=== PATIENT | male | born 1985 | race Caucasian/White ===

== ENCOUNTER 2016-05-10 01:01 | Inpatient (IN) | payer OTHER ==
--- NOTE | 2016-05-10 01:22 | HP ---
COWS - Scale Resting Pulse: 0= [place] 80 or Below Sweatin=Flushed/Facial Moisture Restless Observation: 3= Extraneous Movement Pupil Size: 2= Moderately Dilated Bone or Joint Aches: 0= None Runny Nose/ Eye Tearin= Runny Nose/Eyes GI Upset > 30mins: 0= None Tremor Observation: 1= Tremor [place], Not Seen Yawning Observation: 1= 1-2x During Session Anxiety or Irritability: 2=Irritable/Anxious Goose Flesh Skin: 0=Smooth Skin COWS Score: 13 Admission ROS S - HPI Chief Complaint: WITHDRAWAL SX'S Allergies/Adverse Reactions: Allergies Allergy/AdvReac Type Severity Reaction Status Date / Time No Known Allergies Allergy Verified 05/10/16 01:16 History of Present Illness: 30 Y.O. MALE WITH OPIOID DEPENDENCE HERE FOR DETOX TXMENT. CLIENT REPORTS LAST DETOX 1 YEAR AGO. REPORTS LONGEST CLEAN TIME 8 YEARS. Exam Limitations: No Limitations - Ebola screening Have you traveled outside of the country in the last 21 days: No Have you had contact with anyone from an Ebola affected area: No Have you been sick,other than usual withdrawal symptoms: No Do you have a fever: No - Review of Systems Constitutional: No Symptoms Reported EENT: reports: Ear Discharge ([place]AT[place]), Nose Congestion Respiratory: reports: Shortness of Breath Cardiac: reports: No Symptoms Reported GI: reports: No Symptoms Reported : reports: No Symptoms Reported Musculoskeletal: reports: No Symptoms Reported Integumentary: reports: No Symptoms Reported Neuro: reports: No Symptoms reported Endocrine: reports: No Symptoms Reported Hematology: reports: No Symptoms Reported Psychiatric: reports: Anxious Other Systems: Reviewed and Negative Patient History - Patient Medical History Hx Anemia: No Hx Asthma: No Hx Chronic Obstructive Pulmonary Disease (COPD): No Hx Cancer: No Hx Cardiac Disorders: No Hx Congestive Heart Failure: No Hx Hypertension: No Hx Hypercholesterolemia: No Hx Pacemaker: No HX Cerebrovascular Accident: No Hx Seizures: No Hx Dementia: No Hx Diabetes: No Hx Gastrointestinal Disorders: No Hx Liver Disease: No Hx Genitourinary Disorders: No Hx Sexually Transmitted Disorders: No Hx Renal Disease (ESRD): No Hx Thyroid Disease: No Hx Human Immunodeficiency Virus (HIV): No Hx Hepatitis C: No Hx Depression: No Hx Suicide Attempt: No Hx Bipolar Disorder: No Hx Schizophrenia: No Other Medical History: DENIES - Patient Surgical History Past Surgical History: No - PPD History Previous Implant?: Yes Documented Results: Negative w/o proof Implanted On Prior [facility] Admission?: No PPD to be Administered?: Yes - Smoking Cessation Smoking history: Never smoked Initiated information on smoking cessation: No - Substance & Tx. History Hx Alcohol Use: No Hx Substance Use: Yes Substance Use Type: Heroin Hx Substance Use Treatment: Yes ([facility]) - Substances Abused HEROIN Route: Injection Frequency: Daily Amount used: 30 BAGS Age of first use: 17 Date of Last Use: 05/09/16 Family Disease History - Family Disease History Family History: Denies Admission Physical Exam [facility] - Physical General Appearance: Yes: Appropriately Dressed, Anxious HEENTM: Yes: Nasal Congestion Respiratory: Yes: Chest Non-Tender, Lungs Clear, Normal Breath Sounds, No Respiratory Distress, No Accessory Muscle Use Neck: Yes: No masses,lesions,Nodules, Supple, Trachea in good position Breast: Yes: Breast Exam Deferred Cardiology: Yes: Regular Rhythm, Regular Rate, S1, S2 Abdominal: Yes: Normal Bowel Sounds, Non Tender, Soft Genitourinary: Yes: Within Normal Limits Back: Yes: Normal Inspection Musculoskeletal: Yes: full range of Motion, Gait Steady Extremities: Yes: Normal Capillary Refill, Normal Range of Motion, Non-Tender, Tremors Neurological: Yes: financial planning assistant II-XII NML intact, Fully Oriented, Alert, Motor Strength 5/5 Integumentary: Yes: Normal Color, Warm, Track [place] Lymphatic: Yes: Within Normal Limits - Diagnostic (1) Opioid dependence with withdrawal Current Visit: Yes Status: Acute Cleared for Admission [facility] - Detox or Rehab [facility] Level of Care: Medically Managed Detox Regimen/Protocol: Methadone [facility] Breath Alcohol Content Breath Alcohol Content: 0 Vital Signs - Vital Signs Vital Signs Refused: No Temperature: 96.1 F Temperature Source: Oral Pulse Rate: 65 Respiratory Rate: 20 Blood Pressure: 115/70 BP Location: Left Arm Blood Pressure Position: Sitting - Height Height: 5 ft 10 in - Weight Weight: 83.915 kg Weight Measurement Method: Standing Scale Body Mass Index (BMI): 26.5 - Bowel Function Bowel Movement: No Urine Drug Screen - Test Device Lot Number: [id number] Expiration Date: 12/25/17 - Control Is Test Valid: Yes - Results Drug Screen Negative: Yes Urine Drug Screen Results: OPI-Opiates, OXY-Oxycodone
[2016-05-10 01:29] VITALS: BMI 26.5
[2016-05-10] MEDS ORDERED: NICOTINE POLACRILEX 2 MG GUM BC PRN (01:30)
[2016-05-10] MEDS ORDERED: P-EPHED 60MG/TRIPROLIDI 2.5MG TABLET PO PRN (01:30)
[2016-05-10] MEDS ORDERED: LOPERAMIDE HCL 2 MG CAPSULE PO PRN (01:30)
[2016-05-10] MEDS ORDERED: IBUPROFEN 400 MG TABLET (FP) PO PRN (01:30)
[2016-05-10] MEDS ORDERED: MAGNESIUM CITRATE 300 ML BOTTLE PO PRN (01:30)
[2016-05-10] MEDS ORDERED: MAG HYDROX/AL HYDROX/SIMETH 30 ML UNIT-DOSE CUP PO PRN (01:30)
[2016-05-10] MEDS ORDERED: guaiFENesin/D-METHORPHAN HB 10 ML UNIT-DOSE CUPS PO PRN (01:30)
[2016-05-10] MEDS ORDERED: MENTHOL/PHENOL 1 EACH UD MM PRN (01:30)
[2016-05-10] MEDS ORDERED: MAGNESIUM HYDROX 2400MG/30ML ORAL SUSPENSION 30 ML CUP PO PRN (01:30)
[2016-05-10] MEDS ORDERED: METHADONE HCL 10 MG TABLET (FOR DETOX USE ONLY) PO ONE ×3 (01:30→23:00)
[2016-05-10] MEDS ORDERED: ACETAMINOPHEN 325 MG TABLET (FP) PO PRN (01:30)
[2016-05-10] MEDS ORDERED: cloNIDine HCL 0.1 MG TABLET PO PRN (01:32)
[2016-05-10] MEDS ORDERED: diphenhydrAMINE HCL 25 MG CAPSULE (FP) PO ONE (02:19)
[2016-05-10] MEDS: diphenhydrAMINE HCL 50 MG CAPSULE PO PRN ×2 (02:22→22:38)
[2016-05-10] MEDS: diazePAM 5 MG TABLET PO PRN ×3 (02:23→18:57)
--- NOTE | 2016-05-10 08:00 | PN ---
[facility] Progress Note Note: ABNORMAL EKG BRADYCARDIA 38BPM VSS Vital Signs - 24 hr 05/10/16 05/10/16 05/10/16 02:32 06:44 07:29 Temperature 96.1 F L 97.8 F 96.1 F L Pulse Rate 65 73 65 Respiratory 20 16 20 Rate Blood Pressure 115/70 106/64 115/70 PT IS ASYMPTOMATIC, DENIES CP, SOB, DIZZINESS. WILL REPEAT
[2016-05-10 10:34] LABS: MCH 30.4 pg (25.7-33.7); MCHC 34.3 g/dl (32.0-35.9); MEAN CELL VOLUME 88.6 fl (80-96); MEAN PLT VOLUME 7.5 fl (7.5-11.1); PLATELET COUNT 176 K/MM3 (134-434); RDW 12.2 % (11.9-15.9); WHITE BLOOD COUNT 4.9 K/mm3 (4.0-10.0)
[2016-05-10] MEDS: PRENATAL VITAMINS W/ FOLIC ACID TABLET (FP) PO SCH (10:48)
[2016-05-10 11:27] LABS: ALBUMIN 3.4 g/dl (3.4-5.0); ALK PHOS 53 U/L (45-117); ANION GAP 5 (8-16); BILIRUBIN,TOTAL 0.7 mg/dL (0.2-1.0); CALCIUM 8.7 mg/dL (8.5-10.1); CO2 30 mmol/L (21-32); CREATININE 1.2 mg/dL (0.7-1.3); GLUCOSE,RANDOM 78 mg/dL (74-106); SGOT/AST 41 U/L (15-37); SGPT/ALT 101 U/L (12-78); TOT PROT 6.4 g/dl (6.4-8.2)
--- NOTE | 2016-05-10 16:17 | EKG ---
Test Reason : Blood Pressure : / mmHG Vent. Rate : 049 BPM Atrial Rate : 049 BPM P-R Int : 148 ms QRS Dur : 104 ms QT Int : 492 ms P-R-T Axes : 027 008 019 degrees QTc Int : 444 ms SINUS BRADYCARDIA WITH SINUS ARRHYTHMIA OTHERWISE NORMAL ECG WHEN COMPARED WITH ECG OF 10-MAY-2016 02:08, QT HAS LENGTHENED Confirmed by TAYLA HASSAN MD ([id number]) on 05/10/2016 4:17:12 PM Referred By: Confirmed By:TAYLA HASSAN MD
--- NOTE | 2016-05-10 16:19 | EKG ---
Test Reason : Blood Pressure : / mmHG Vent. Rate : 038 BPM Atrial Rate : 038 BPM P-R Int : 134 ms QRS Dur : 102 ms QT Int : 484 ms P-R-T Axes : 054 025 036 degrees QTc Int : 384 ms MARKED SINUS BRADYCARDIA ABNORMAL ECG NO PREVIOUS ECGS AVAILABLE Confirmed by TAYLA HASSAN MD ([id number]) on 05/10/2016 4:19:17 PM Referred By: Confirmed By:TAYLA HASSAN MD
--- NOTE | 2016-05-10 17:30 | PN ---
[facility] COWS - Scale Resting Pulse: 0= DC 80 or Below Sweatin=Flushed/Facial Moisture Restless Observation: 1= Difficult to Sit Still Pupil Size: 2= Moderately Dilated Bone or Joint Aches: 2= Severe Diffuse Aches Runny Nose/ Eye Tearin= Runny Nose/Eyes GI Upset > 30mins: 2= Nausea/Diarrhea Tremor Observation of Outstretched Hands: 2= Slight Tremor Visible Yawning Observation: 0= None Anxiety or Irritability: 2=Irritable/Anxious Goose Flesh Skin: 0=Smooth Skin COWS Score: 15 [facility] Progress Note (SOAP) Objective: 05/10/16 17:30 Vital Signs - 24 hr 05/10/16 05/10/16 05/10/16 02:32 06:44 07:29 Temperature 96.1 F L 97.8 F 96.1 F L Pulse Rate 65 73 65 Respiratory 20 16 20 Rate Blood Pressure 115/70 106/64 115/70 05/10/16 05/10/16 09:51 14:39 Temperature 98.6 F 97 F L Pulse Rate 61 68 Respiratory 18 18 Rate Blood Pressure 115/66 101/64 Laboratory Tests 05/10/16 05/10/16 05/10/16 08:00 08:00 08:00 WBC 4.9 RBC 4.59 Hgb 13.9 Hct 40.7 MCV 88.6 MCHC 34.3 RDW 12.2 Plt Count 176 MPV 7.5 Sodium 136 Potassium 3.5 Chloride 101 Carbon Dioxide 30 Anion Gap 5 L BUN 18 Creatinine 1.2 Creat Clearance w eGFR > 60 Random Glucose 78 Calcium 8.7 Total Bilirubin 0.7 AST 41 H ALT 101 H Alkaline Phosphatase 53 Total Protein 6.4 Albumin 3.4 RPR Titer Nonreactive Assessment: 05/10/16 17:30 ongoing withdrawal Plan: continue detox protocol
--- NOTE | 2016-05-10 19:10 | CONSULT ---
[facility] Psychiatric Consult - Data Date of interview: 05/10/16 Admission source: [facility] Identifying data: First admission to [facility] for this 30 y/o male seeking detox treatment on for opioid dependence.Patient is single without children,domiciled and employed. Substance Abuse History: - Smoking Cessation. Smoking history: Never smoked. Initiated information on smoking cessation: No. - Substance & Tx. History. Hx Alcohol Use: No. Hx Substance Use: Yes. Substance Use Type: Heroin. Hx Substance Use Treatment: Yes ([facility]). - Substances Abused. HEROIN. Route: Injection. Frequency: Daily. Amount used: 30 BAGS. Age of first use: 17. Date of Last Use: 05/09/16. Confirmed by patient. Medical History: Patient denies medical problems.Endorses good general health. Psychiatric History: Patient denies. Physical/Sexual Abuse/Trauma History: Patient denies. Additional Comment: Urine Drug Screen Results: OPI-Opiates, OXY-Oxycodone.Noted. Mental Status Exam - Mental Status Exam Alert and Oriented to: Time, Place, Person Cognitive Function: Good Patient Appearance: Well Groomed Mood: Hopeful, Euthymic Affect: Appropriate, Normal Range Patient Behavior: Fatigued, Appropriate, Cooperative Speech Pattern: Clear, Appropriate Voice Loudness: Normal Thought Process: Goal Oriented Thought Disorder: Not Present Hallucinations: Denies Suicidal Ideation: Denies Homicidal Ideation: Denies Insight/Judgement: Fair Sleep: Well Appetite: Good Muscle strength/Tone: Normal Gait/Station: Normal Psychiatric Findings - Problem List ([place] 1, 2,3) (1) Opioid dependence with withdrawal Current Visit: Yes Status: Acute - Initial Treatment Plan Initial Treatment Plan: Psychoeducation.Detoxification.Observation.
[2016-05-10] MEDS: THIAMINE HCL 100 MG TABLET (FP) PO SCH (22:37)
[2016-05-11 09:12] LABS: URINE APPEARANCE SLCLOUDY; URINE BILIRUBIN NEGATIVE (NEGATIVE); URINE BLOOD NEGATIVE (NEGATIVE); URINE COLOR YELLOW; URINE GLUCOSE (UA) NEGATIVE (NEGATIVE); URINE KETONE NEGATIVE (NEGATIVE); URINE LEUK ESTERASE NEGATIVE (NEGATIVE); URINE NITRITE NEGATIVE (NEGATIVE); URINE PROTEIN NEGATIVE (NEGATIVE); URINE UROBILINOGEN NEGATIVE E.U./dl (0.2-1.0)
[2016-05-11] MEDS ORDERED: METHADONE HCL 10 MG TABLET (FOR DETOX USE ONLY) PO ONE (10:00)
[2016-05-11] MEDS: diazePAM 5 MG TABLET PO PRN ×3 (10:42→22:33)
[2016-05-11] MEDS: PRENATAL VITAMINS W/ FOLIC ACID TABLET (FP) PO SCH (10:42)
--- NOTE | 2016-05-11 16:33 | PN ---
[facility] COWS - Scale Resting Pulse: 0= DC 80 or Below Sweatin=Flushed/Facial Moisture Restless Observation: 3= Extraneous Movement Pupil Size: 2= Moderately Dilated Bone or Joint Aches: 2= Severe Diffuse Aches Runny Nose/ Eye Tearin= Runny Nose/Eyes GI Upset > 30mins: 2= Nausea/Diarrhea Tremor Observation of Outstretched Hands: 2= Slight Tremor Visible Yawning Observation: 0= None Anxiety or Irritability: 2=Irritable/Anxious Goose Flesh Skin: 0=Smooth Skin COWS Score: 17 [facility] Progress Note (SOAP) Subjective: Sweating, nausea, anxious, restless, tremor; patient requesting discharge on Thursday as school semester starts on as per patient Objective: 05/11/16 16:31 Last Vital Signs Temp Pulse Resp BP Pulse Ox 98.2 F 71 18 94/70 05/11/16 13:50 05/11/16 13:50 05/11/16 13:50 05/11/16 13:50 Laboratory Tests 05/10/16 05/10/16 05/10/16 08:00 08:00 08:00 WBC 4.9 RBC 4.59 Hgb 13.9 Hct 40.7 MCV 88.6 MCHC 34.3 RDW 12.2 Plt Count 176 MPV 7.5 Sodium 136 Potassium 3.5 Chloride 101 Carbon Dioxide 30 Anion Gap 5 L BUN 18 Creatinine 1.2 Creat Clearance w eGFR > 60 Random Glucose 78 Calcium 8.7 Total Bilirubin 0.7 AST 41 H ALT 101 H Alkaline Phosphatase 53 Total Protein 6.4 Albumin 3.4 Urine Color Urine Appearance Urine pH Ur Specific [place] Urine Protein Urine Glucose (UA) Urine Ketones Urine Blood Urine Nitrite Urine Bilirubin Urine Urobilinogen Ur Leukocyte Esterase RPR Titer Nonreactive 05/11/16 07:20 WBC RBC Hgb Hct MCV MCHC RDW Plt Count MPV Sodium Potassium Chloride Carbon Dioxide Anion Gap BUN Creatinine Creat Clearance w eGFR Random Glucose Calcium Total Bilirubin AST ALT Alkaline Phosphatase Total Protein Albumin Urine Color Yellow Urine Appearance Slcloudy Urine pH 8.0 Ur Specific [place] 1.015 Urine Protein Negative Urine Glucose (UA) Negative Urine Ketones Negative Urine Blood Negative Urine Nitrite Negative Urine Bilirubin Negative Urine Urobilinogen Negative Ur Leukocyte Esterase Negative RPR Titer Labs noted Assessment: 05/11/16 16:32 Withdrawal symptoms Plan: Continue detox
[2016-05-11] MEDS: THIAMINE HCL 100 MG TABLET (FP) PO SCH (22:32)
[2016-05-11] MEDS: diphenhydrAMINE HCL 50 MG CAPSULE PO PRN (22:33)
[2016-05-12] MEDS ORDERED: METHADONE HCL 5 MG TABLET (FOR DETOX USE ONLY) PO ONE (10:00)
[2016-05-12] MEDS: diazePAM 5 MG TABLET PO PRN ×3 (10:27→22:36)
[2016-05-12] MEDS: PRENATAL VITAMINS W/ FOLIC ACID TABLET (FP) PO SCH (10:28)
--- NOTE | 2016-05-12 12:00 | PN ---
S COWS - Scale Resting Pulse: 0= [place] 80 or Below Sweatin=Flushed/Facial Moisture Restless Observation: 1= Difficult to Sit Still Pupil Size: 2= Moderately Dilated Bone or Joint Aches: 2= Severe Diffuse Aches Runny Nose/ Eye Tearin= Runny Nose/Eyes GI Upset > 30mins: 2= Nausea/Diarrhea Tremor Observation of Outstretched Hands: 1= Tremor [place], Not Seen Yawning Observation: 2= >3x During Session Anxiety or Irritability: 2=Irritable/Anxious Goose Flesh Skin: 0=Smooth Skin COWS Score: 16 S Progress Note (SOAP) Subjective: restless, anxiety, runny nose, interrupted sleep Objective: 05/12/16 11:59 Vital Signs - 8 hr 05/12/16 05/12/16 06:51 10:22 Temperature 97.0 F L 96.7 F L Pulse Rate 44 L 61 Respiratory 16 18 Rate Blood Pressure 128/77 113/77 Laboratory Last Values WBC 4.9 K/mm3 (4.0-10.0) 05/10/16 08:00 RBC 4.59 M/mm3 (4.00-5.60) 05/10/16 08:00 Hgb 13.9 GM/dL (11.7-16.9) 05/10/16 08:00 Hct 40.7 % (35.4-49) 05/10/16 08:00 MCV 88.6 fl (80-96) 05/10/16 08:00 MCHC 34.3 g/dl (32.0-35.9) 05/10/16 08:00 RDW 12.2 % (11.9-15.9) 05/10/16 08:00 Plt Count 176 K/MM3 (134-434) 05/10/16 08:00 MPV 7.5 fl (7.5-11.1) 05/10/16 08:00 Sodium 136 mmol/L (136-145) 05/10/16 08:00 Potassium 3.5 mmol/L (3.5-5.1) 05/10/16 08:00 Chloride 101 mmol/L (98-107) 05/10/16 08:00 Carbon Dioxide 30 mmol/L (21-32) 05/10/16 08:00 Anion Gap 5 (8-16) L 05/10/16 08:00 BUN 18 mg/dL (7-18) 05/10/16 08:00 Creatinine 1.2 mg/dL (0.7-1.3) 05/10/16 08:00 Creat Clearance w eGFR > 60 (>60) 05/10/16 08:00 Random Glucose 78 mg/dL (74-106) 05/10/16 08:00 Calcium 8.7 mg/dL (8.5-10.1) 05/10/16 08:00 Total Bilirubin 0.7 mg/dL (0.2-1.0) 05/10/16 08:00 AST 41 U/L (15-37) H 05/10/16 08:00 ALT 101 U/L (12-78) H 05/10/16 08:00 Alkaline Phosphatase 53 U/L (45-117) 05/10/16 08:00 Total Protein 6.4 g/dl (6.4-8.2) 05/10/16 08:00 Albumin 3.4 g/dl (3.4-5.0) 05/10/16 08:00 Urine Color Yellow 05/11/16 07:20 Urine Appearance Slcloudy 05/11/16 07:20 Urine pH 8.0 (5.0-8.0) 05/11/16 07:20 Ur Specific [place] 1.015 (1.001-1.035) 05/11/16 07:20 Urine Protein Negative (NEGATIVE) 05/11/16 07:20 Urine Glucose (UA) Negative (NEGATIVE) 05/11/16 07:20 Urine Ketones Negative (NEGATIVE) 05/11/16 07:20 Urine Blood Negative (NEGATIVE) 05/11/16 07:20 Urine Nitrite Negative (NEGATIVE) 05/11/16 07:20 Urine Bilirubin Negative (NEGATIVE) 05/11/16 07:20 Urine Urobilinogen Negative E.U./dl (0.2-1.0) 05/11/16 07:20 Ur Leukocyte Esterase Negative (NEGATIVE) 05/11/16 07:20 RPR Titer Nonreactive (NONREACTIVE) 05/10/16 08:00 labs noted hypokalemia Assessment: 05/12/16 12:00 withdrawal symptoms Plan: Continue Detox
[2016-05-12] MEDS: THIAMINE HCL 100 MG TABLET (FP) PO SCH (22:34)
[2016-05-12] MEDS: diphenhydrAMINE HCL 50 MG CAPSULE PO PRN (22:35)
[2016-05-13] MEDS ORDERED: METHADONE HCL 10 MG TABLET (FOR DETOX USE ONLY) PO ONE (10:00)
[2016-05-13] MEDS ORDERED: METHADONE HCL 5 MG TABLET (FOR DETOX USE ONLY) PO ONE (10:00)
[2016-05-13] MEDS: PRENATAL VITAMINS W/ FOLIC ACID TABLET (FP) PO SCH (10:33)
--- NOTE | 2016-05-13 10:43 | PN ---
[facility] Progress Note (SOAP) Subjective: ANXIETY,TREMORS,RESTLESS. Objective: 05/13/16 10:42 Vital Signs Temperature 96.9 F L 05/13/16 06:32 Pulse Rate 63 05/13/16 09:33 Respiratory Rate 18 05/13/16 09:33 Blood Pressure 119/78 05/13/16 09:33 O2 Sat by Pulse Oximetry (%) Assessment: 05/13/16 10:42 WITHDRAWAL SX Plan: CONTINUE DETOX INCREASE PO FLUIDS
[2016-05-13] MEDS: hydrOXYzine PAMOATE 50 MG CAPSULE (FP) PO PRN ×2 (13:18→20:43)
[2016-05-13] MEDS: diphenhydrAMINE HCL 50 MG CAPSULE PO PRN (22:23)
[2016-05-13] MEDS: THIAMINE HCL 100 MG TABLET (FP) PO SCH (22:23)
[2016-05-14] MEDS ORDERED: METHADONE HCL 5 MG TABLET (FOR DETOX USE ONLY) PO ONE (06:00)
[2016-05-14 06:29] VITALS: BP 119/81; PULSE 49; TEMP 96.1
[2016-05-14] MEDS ORDERED: METHADONE HCL 10 MG TABLET (FOR DETOX USE ONLY) PO ONE (10:00)
--- NOTE | 2016-05-14 10:47 | DS ---
[facility] Detox Discharge Summary Admission Date: 05/10/16 Discharge Date: 05/14/16 - History Present History: Opioid Dependence Additional Comments: DETOX COMPLETED Pertinent Past History: DENIES - Physical Exam Results Vital Signs: Vital Signs Temperature 96.1 F L 05/14/16 06:28 Pulse Rate 49 L 05/14/16 06:28 Respiratory Rate 18 05/14/16 06:28 Blood Pressure 119/81 05/14/16 06:28 O2 Sat by Pulse Oximetry (%) Pertinent Admission Physical Exam Findings: WITHDRAWAL SX Laboratory Last Values WBC 4.9 K/mm3 (4.0-10.0) 05/10/16 08:00 RBC 4.59 M/mm3 (4.00-5.60) 05/10/16 08:00 Hgb 13.9 GM/dL (11.7-16.9) 05/10/16 08:00 Hct 40.7 % (35.4-49) 05/10/16 08:00 MCV 88.6 fl (80-96) 05/10/16 08:00 MCHC 34.3 g/dl (32.0-35.9) 05/10/16 08:00 RDW 12.2 % (11.9-15.9) 05/10/16 08:00 Plt Count 176 K/MM3 (134-434) 05/10/16 08:00 MPV 7.5 fl (7.5-11.1) 05/10/16 08:00 Sodium 136 mmol/L (136-145) 05/10/16 08:00 Potassium 3.5 mmol/L (3.5-5.1) 05/10/16 08:00 Chloride 101 mmol/L (98-107) 05/10/16 08:00 Carbon Dioxide 30 mmol/L (21-32) 05/10/16 08:00 Anion Gap 5 (8-16) L 05/10/16 08:00 BUN 18 mg/dL (7-18) 05/10/16 08:00 Creatinine 1.2 mg/dL (0.7-1.3) 05/10/16 08:00 Creat Clearance w eGFR > 60 (>60) 05/10/16 08:00 Random Glucose 78 mg/dL (74-106) 05/10/16 08:00 Calcium 8.7 mg/dL (8.5-10.1) 05/10/16 08:00 Total Bilirubin 0.7 mg/dL (0.2-1.0) 05/10/16 08:00 AST 41 U/L (15-37) H 05/10/16 08:00 ALT 101 U/L (12-78) H 05/10/16 08:00 Alkaline Phosphatase 53 U/L (45-117) 05/10/16 08:00 Total Protein 6.4 g/dl (6.4-8.2) 05/10/16 08:00 Albumin 3.4 g/dl (3.4-5.0) 05/10/16 08:00 Urine Color Yellow 05/11/16 07:20 Urine Appearance Slcloudy 05/11/16 07:20 Urine pH 8.0 (5.0-8.0) 05/11/16 07:20 Ur Specific [place] 1.015 (1.001-1.035) 05/11/16 07:20 Urine Protein Negative (NEGATIVE) 05/11/16 07:20 Urine Glucose (UA) Negative (NEGATIVE) 05/11/16 07:20 Urine Ketones Negative (NEGATIVE) 05/11/16 07:20 Urine Blood Negative (NEGATIVE) 05/11/16 07:20 Urine Nitrite Negative (NEGATIVE) 05/11/16 07:20 Urine Bilirubin Negative (NEGATIVE) 05/11/16 07:20 Urine Urobilinogen Negative E.U./dl (0.2-1.0) 05/11/16 07:20 Ur Leukocyte Esterase Negative (NEGATIVE) 05/11/16 07:20 RPR Titer Nonreactive (NONREACTIVE) 05/10/16 08:00 - Treatment Hospital Course: Detox Protocol Followed, Detoxed Safely, Responded well, Discharged Condition Good - Medication Discharge Medications: Ambulatory Orders NK [No Known Home Medication] 05/10/16 - Diagnosis (1) Opioid dependence with withdrawal Status: Acute - AMA Did Patient Leave Against Medical Advice: No
[2016-05-15] MEDS ORDERED: METHADONE HCL 5 MG TABLET (FOR DETOX USE ONLY) PO ONE (06:00)
== END 2016-05-14 08:56 | disposition home or self-care (01) | DRG 773 ==
LOC: YASAS 01:01 → Y3N 01:41
PROVIDERS: ADMIT Internal Medicine; ATTEND Internal Medicine
PROC: HZ2ZZZZ Detoxification Services for Substance Abuse Treatment (ICD-10-PCS; principal; 2016-05-10)
DX: F11.23 Opioid dependence with withdrawal (principal); R00.1 Bradycardia, unspecified; R94.31 Abnormal electrocardiogram [ECG] [EKG]
CPT/HCPCS: 36415; 80053; 81003; 85027; 86593; 93005; 93010

== ENCOUNTER 2017-04-17 09:48 | Inpatient (IN) | payer OTHER ==
[2017-04-17 11:15] VITALS: BMI 28.4
--- NOTE | 2017-04-17 14:03 | HP ---
COWS - Scale Resting Pulse: 0= [place] 80 or Below Sweatin= Chills/Flushing Restless Observation: 1= Difficult to Sit Still Pupil Size: 0= Normal to Room Light Bone or Joint Aches: 2= Severe Diffuse Aches Runny Nose/ Eye Tearin= None GI Upset > 30mins: 2= Nausea/Diarrhea Tremor Observation: 2= Slight Tremor Visible Yawning Observation: 1= 1-2x During Session Anxiety or Irritability: 4=Extreme Anxiety Goose Flesh Skin: 3=Piloerection COWS Score: 16 Admission ROS S - HPI Chief Complaint: "I can't take this anymore. It is taking over my whole life for nothing." Patient is here to Detox from Heroin. Allergies/Adverse Reactions: Allergies Allergy/AdvReac Type Severity Reaction Status Date / Time No Known Allergies Allergy Verified 04/17/17 12:57 History of Present Illness: Patient is a 31 YO male here to Detox from Heroin. Patient has had 1 previous Detox admission at [facility] (04/2016). Patient had a detox admission at [facility]) in 2007. Patient had a Rehab admission at [facility] in 05/2016. Patient did not use for approximately five months after that rehab admission. Exam Limitations: No Limitations - Ebola screening Have you traveled outside of the country in the last 21 days: No Have you had contact with anyone from an Ebola affected area: No Have you been sick,other than usual withdrawal symptoms: No Do you have a fever: No - Review of Systems Constitutional: Chills, Diaphoresis, Fever, Malaise, Night Sweats, Changes in sleep EENT: reports: No Symptoms Reported Respiratory: reports: No Symptoms reported Cardiac: reports: Palpitations GI: reports: Constipated, Nausea, Vomiting : reports: No Symptoms Reported Musculoskeletal: reports: Back Pain, Muscle Pain Integumentary: reports: No Symptoms Reported Neuro: reports: Tremors Endocrine: reports: No Symptoms Reported Hematology: reports: No Symptoms Reported Psychiatric: reports: No Sypmtoms Reported, Judgement Intact, Mood/Affect Appropiate, Orientated x3, Anxious, Depressed (Only when using drugs / coming off of drugs.) Other Systems: Reviewed and Negative Patient History - Patient Medical History Hx Anemia: No Hx Asthma: No Hx Chronic Obstructive Pulmonary Disease (COPD): No Hx Cancer: No Hx Cardiac Disorders: No Hx Congestive Heart Failure: No Hx Hypertension: No Hx Hypercholesterolemia: No Hx Pacemaker: No HX Cerebrovascular Accident: No Hx Seizures: No Hx Dementia: No Hx Diabetes: No Hx Gastrointestinal Disorders: No Hx Liver Disease: No Hx Genitourinary Disorders: No Hx Sexually Transmitted Disorders: No Hx Renal Disease (ESRD): No Hx Thyroid Disease: No Hx Human Immunodeficiency Virus (HIV): No (Last Tested: 11/2016: NEGATIVE.) Hx Hepatitis C: No (Last Tested: 05/2016: NEGATIVE.) Hx Depression: No Hx Suicide Attempt: No (PATIENT DENIES CURRENT SI / HI.) Hx Bipolar Disorder: No Hx Schizophrenia: No Other Medical History: DENIES. - Patient Surgical History Past Surgical History: No Hx Neurologic Surgery: No Hx Cataract Extraction: No Hx Cardiac Surgery: No Hx Lung Surgery: No Hx Breast Surgery: No Hx Breast Biopsy: No Hx Abdominal Surgery: No Hx Appendectomy: No Hx Cholecystectomy: No Hx Genitourinary Surgery: No Hx Section: No Hx Orthopedic Surgery: No Anesthesia Reaction: No - PPD History Previous Implant?: Yes Documented Results: Negative w/proof Implanted On Prior [facility] Admission?: Yes Date: 05/13/16 Results: 0 mm PPD to be Administered?: No - Reproductive History Patient is a Female of Child Bearing Age (11 -55 yrs old): No (PATIENT IS MALE.) - Smoking Cessation Smoking history: Current some day smoker Have you smoked in the past 12 months: Yes Aproximately how many cigarettes per day: 2 Cigars Per Day: 0 Hx Chewing Tobacco Use: No Initiated information on smoking cessation: Yes 'Breaking Loose' booklet given: 04/17/17 (GIVE ON UNIT.) - Substance & Tx. History Hx Alcohol Use: No Hx Substance Use: Yes Substance Use Type: Heroin, Opiates, Tranquilizers Hx Substance Use Treatment: Yes (Rehab admission at [facility] (06/13); Detox admission at [facility]: 05/13.) - Substances Abused Heroin Route: Injection Frequency: Daily Amount used: 40 bags Age of first use: 18 Date of Last Use: 04/17/17 Cocaine Route: Injection Frequency: 1-2 times per week Amount used: $30 Age of first use: 18 Date of Last Use: 04/14/17 Xanax Route: Inhalation Frequency: 3-6 times per week Amount used: 40 mg. Age of first use: 18 Date of Last Use: 04/14/17 street methadone Route: Oral Frequency: 1-2 times per week Amount used: 30 mg. Age of first use: 30 Date of Last Use: 04/15/17 Family Disease History - Family Disease History Family History: Denies Admission Physical Exam [facility] - Vital Signs Vital Signs: Vital Signs - 24 hr 04/17/17 11:12 Temperature 96.4 F L Pulse Rate 72 Respiratory 18 Rate Blood Pressure 132/72 - Physical General Appearance: Yes: Nourished, Appropriately Dressed, Mild Distress, Tremorous, Anxious HEENTM: Yes: Hearing grossly Normal, Normocephalic, Normal Voice, BETHEL, Pharynx Normal Respiratory: Yes: Chest Non-Tender, Lungs Clear, No Respiratory Distress, No Accessory Muscle Use Neck: Yes: No masses,lesions,Nodules, Supple, Trachea in good position Breast: Yes: Breast Exam Deferred Cardiology: Yes: Regular Rhythm, Regular Rate, S1, S2 Abdominal: Yes: Normal Bowel Sounds, Non Tender, Flat, Soft Genitourinary: Yes: Within Normal Limits Back: Yes: Decreased Range of Motion Musculoskeletal: Yes: Gait Steady, Back pain, Muscle Pain Extremities: Yes: Normal Capillary Refill, Normal Range of Motion, Non-Tender, Tremors Neurological: Yes: Fully Oriented, Alert, Normal Mood/Affect, Normal Response Integumentary: Yes: Normal Color, Dry, Warm, Track [place] (Noted on Bilateral Forearms (No signs of infection noted).) Lymphatic: Yes: Within Normal Limits - Diagnostic (1) Nicotine dependence Current Visit: Yes Status: Chronic Qualifiers: Nicotine product type: cigarettes Substance use status: uncomplicated Qualified Code(s): F17.210 - Nicotine dependence, cigarettes, uncomplicated (2) Sedative, hypnotic or anxiolytic dependence, uncomplicated Current Visit: Yes Status: Chronic (3) Opioid dependence with withdrawal Current Visit: Yes Status: Acute (4) Cocaine dependence, uncomplicated Current Visit: Yes Status: Chronic Cleared for Admission [facility] - Detox or Rehab [facility] Level of Care: Medically Managed Detox Regimen/Protocol: Methadone [facility] Breath Alcohol Content Breath Alcohol Content: 0 Urine Drug Screen - Results Drug Screen Negative: No Urine Drug Screen Results: JOSE-Cocaine, OPI-Opiates, MTD-Methadone, TCA- Tricyclic Antidepress, OXY-Oxycodone
[2017-04-17] MEDS ORDERED: LOPERAMIDE HCL 2 MG CAPSULE PO PRN (14:33)
[2017-04-17] MEDS ORDERED: P-EPHED 60MG/TRIPROLIDI 2.5MG TABLET PO PRN (14:33)
[2017-04-17] MEDS ORDERED: MENTHOL/PHENOL 1 EACH UD MM PRN (14:33)
[2017-04-17] MEDS ORDERED: MAGNESIUM CITRATE 300 ML BOTTLE PO PRN (14:33)
[2017-04-17] MEDS ORDERED: guaiFENesin/D-METHORPHAN HB 10 ML UNIT-DOSE CUPS PO PRN (14:33)
[2017-04-17] MEDS ORDERED: ACETAMINOPHEN 325 MG TABLET (FP) PO PRN (14:33)
[2017-04-17] MEDS ORDERED: METHADONE HCL 10 MG TABLET (FOR DETOX USE ONLY) PO ONE ×2 (15:15→23:00)
[2017-04-17] MEDS: diazePAM 5 MG TABLET PO PRN ×2 (15:17→19:52)
--- NOTE | 2017-04-17 16:43 | CONSULT ---
[facility] Psychiatric Consult - Data Date of interview: 04/17/17 Admission source: [facility] Identifying data: Pt. is a 31 year old male, single, no kids, unemployed, and living at home with his parents. This is one of multiple admissions to [facility]. Pt. admitted to [place] for heroin, cocaine, xanax, street methadone dependence. Substance Abuse History: Following information confirmed with Mr. Yun: Smoking Cessation. Smoking history: Current some day smoker. Have you smoked in the past 12 months: Yes. Aproximately how many cigarettes per day: 2. - Substance & Tx. History. Hx Alcohol Use: No. Hx Substance Use: Yes. Substance Use Type: Heroin, Opiates, Tranquilizers. Hx Substance Use Treatment : Yes (Rehab admission at [facility] (06/13); Detox admission at [facility]: 05/13.). Heroin: Route: Injection Frequency: Daily. Amount used: 40 bags Age of first use: 18. Date of Last Use: 04/17/17. Cocaine: Route: Injection Frequency: 1-2 times per week. Amount used: $30 Age of first use: 18. Date of Last Use: 04/14/17. Xanax:Route: Inhalation Frequency: 3-6 times per week. Amount used: 40 mg. Age of first use: 18. Date of Last Use: 04/14/17. street methadone: Route: Oral Frequency: 1-2 times per week. Amount used: 30 mg. Age of first use: 30. Date of Last Use: 04/15/17 Medical History: Denies. Psychiatric History: Pt. denies h/o psychiatric hospitalizations and suicide attempts. Physical/Sexual Abuse/Trauma History: Pt. denies. Mental Status Exam - Mental Status Exam Alert and Oriented to: Time, Place, Person Cognitive Function: Good Patient Appearance: Unkempt Mood: Anxious Affect: Appropriate Patient Behavior: Appropriate, Cooperative Speech Pattern: Appropriate Voice Loudness: Moderately Soft/Quiet Thought Process: Goal Oriented Thought Disorder: Not Present Hallucinations: Denies Suicidal Ideation: Denies Homicidal Ideation: Denies Insight/Judgement: Poor Sleep: Poorly Appetite: Fair Muscle strength/Tone: Normal Gait/Station: Normal Psychiatric Findings - Problem List ([place] 1, 2,3) (1) Opioid dependence with withdrawal Current Visit: Yes Status: Acute (2) Cocaine dependence, uncomplicated Current Visit: Yes Status: Acute (3) Nicotine dependence Current Visit: Yes Status: Acute Qualifiers: Nicotine product type: cigarettes Substance use status: uncomplicated Qualified Code(s): F17.210 - Nicotine dependence, cigarettes, uncomplicated (4) Sedative, hypnotic or anxiolytic dependence, uncomplicated Current Visit: Yes Status: Acute - Initial Treatment Plan Initial Treatment Plan: Psychoeducation provided. Detox in progress. Trazodone 50mg qhs ordered for insomnia. Benefits and side effects (Priapism) discussed. Pt. reports favorable effect from previously taking trazodone. Verbal consent given. Pt. agreeable with plan.
[2017-04-17] MEDS: MAGNESIUM HYDROX 2400MG/30ML ORAL SUSPENSION 30 ML CUP PO PRN (17:25)
[2017-04-17 18:58] LABS: ALBUMIN 3.9 g/dl (3.4-5.0); ANION GAP 5 (8-16); BILIRUBIN,TOTAL 0.6 mg/dL (0.2-1.0); CALCIUM 9.2 mg/dL (8.5-10.1); CO2 33 mmol/L (21-32); CREATININE 1.1 mg/dL (0.7-1.3); GLUCOSE,RANDOM 99 mg/dL (74-106); SGPT/ALT 42 U/L (12-78); TOT PROT 7.4 g/dl (6.4-8.2)
[2017-04-17 18:59] LABS: ALK PHOS 74 U/L (45-117)
[2017-04-17 19:03] LABS: SGOT/AST 22 U/L (15-37)
[2017-04-17 19:05] LABS: MCHC 33.3 g/dl (32.0-35.9); MEAN CELL VOLUME 89.9 fl (80-96); MEAN PLT VOLUME 8.3 fl (7.5-11.1); PLATELET COUNT 232 K/MM3 (134-434); RDW 13.3 % (11.9-15.9); WHITE BLOOD COUNT 5.4 K/mm3 (4.0-10.0)
[2017-04-17 19:06] LABS: URINE APPEARANCE SLCLOUDY; URINE BILIRUBIN NEGATIVE (NEGATIVE); URINE BLOOD NEGATIVE (NEGATIVE); URINE COLOR YELLOW; URINE GLUCOSE (UA) NEGATIVE (NEGATIVE); URINE KETONE NEGATIVE (NEGATIVE); URINE LEUK ESTERASE NEGATIVE (NEGATIVE); URINE NITRITE NEGATIVE (NEGATIVE); URINE PROTEIN NEGATIVE (NEGATIVE); URINE UROBILINOGEN NEGATIVE mg/dL (0.2-1.0)
[2017-04-17] MEDS: IBUPROFEN 400 MG TABLET (FP) PO PRN (19:52)
[2017-04-17 22:16] LABS: URINE LEUK ESTERASE Negative (NEGATIVE)
[2017-04-17] MEDS: traZODone HCL 50 MG TABLET (FP) PO SCH (22:48)
[2017-04-17] MEDS: THIAMINE HCL 100 MG TABLET (FP) PO SCH (22:48)
[2017-04-18] MEDS: diazePAM 5 MG TABLET PO PRN ×3 (02:42→20:17)
[2017-04-18] MEDS: MAG HYDROX/AL HYDROX/SIMETH 30 ML UNIT-DOSE CUP PO PRN ×2 (02:43→14:52)
[2017-04-18 09:42] LABS: HIV 1 & 2 AB NEGATIVE; HIV 1 AGp24 NEGATIVE
[2017-04-18] MEDS ORDERED: METHADONE HCL 10 MG TABLET (FOR DETOX USE ONLY) PO ONE (10:00)
[2017-04-18] MEDS: PRENATAL VITAMINS W/ FOLIC ACID TABLET (FP) PO SCH (10:43)
[2017-04-18] MEDS: IBUPROFEN 400 MG TABLET (FP) PO PRN (10:47)
--- NOTE | 2017-04-18 16:00 | PN ---
BHS COWS - Scale Resting Pulse: 1= [place] 81-100 Sweatin=Flushed/Facial Moisture Restless Observation: 1= Difficult to Sit Still Pupil Size: 0= Normal to Room Light Bone or Joint Aches: 1= Mild Discomfort Runny Nose/ Eye Tearin= Runny Nose/Eyes GI Upset > 30mins: 2= Nausea/Diarrhea Tremor Observation of Outstretched Hands: 2= Slight Tremor Visible Yawning Observation: 1= 1-2x During Session Anxiety or Irritability: 2=Irritable/Anxious Goose Flesh Skin: 0=Smooth Skin COWS Score: 14 BHS Progress Note (SOAP) Subjective: Sweating,body aches,anxiety,tremors,interrupted sleep,restless Objective: 04/18/17 15:59 Vital Signs - 8 hr 04/18/17 04/18/17 10:00 15:32 Temperature 95.5 F L 97.8 F Pulse Rate 83 99 H Respiratory 18 20 Rate Blood Pressure 134/76 116/78 Laboratory Tests 04/17/17 04/17/17 04/17/17 13:00 15:00 15:00 WBC 5.4 RBC 5.44 Hgb 16.3 D Hct 48.9 D MCV 89.9 MCH 30.0 MCHC 33.3 RDW 13.3 Plt Count 232 D MPV 8.3 D Sodium 137 Potassium 4.4 D Chloride 99 Carbon Dioxide 33 H Anion Gap 5 L BUN 14 D Creatinine 1.1 Creat Clearance w eGFR > 60 Random Glucose 99 D Calcium 9.2 Total Bilirubin 0.6 AST 22 D ALT 42 D Alkaline Phosphatase 74 D Total Protein 7.4 Albumin 3.9 Urine Color Urine Appearance Urine pH Ur Specific [place] Urine Protein Urine Glucose (UA) Urine Ketones Urine Blood Urine Nitrite Urine Bilirubin Urine Urobilinogen Ur Leukocyte Esterase RPR Titer Hepatitis C Antibody HIV 1&2 Antibody Screen Negative HIV P24 Antigen Negative 04/17/17 04/17/17 04/17/17 15:00 15:00 15:00 WBC RBC Hgb Hct MCV MCH MCHC RDW Plt Count MPV Sodium Potassium Chloride Carbon Dioxide Anion Gap BUN Creatinine Creat Clearance w eGFR Random Glucose Calcium Total Bilirubin AST ALT Alkaline Phosphatase Total Protein Albumin Urine Color Yellow Urine Appearance Slcloudy Urine pH 5.0 D Ur Specific [place] 1.017 Urine Protein Negative Urine Glucose (UA) Negative Urine Ketones Negative Urine Blood Negative Urine Nitrite Negative Urine Bilirubin Negative Urine Urobilinogen Negative Ur Leukocyte Esterase Negative RPR Titer Nonreactive Hepatitis C Antibody <0.1 HIV 1&2 Antibody Screen HIV P24 Antigen labs noted Assessment: 04/18/17 16:00 Withdrawal sx. Plan: Continue detox
[2017-04-18] MEDS: THIAMINE HCL 100 MG TABLET (FP) PO SCH (22:50)
[2017-04-18] MEDS: traZODone HCL 50 MG TABLET (FP) PO SCH (22:50)
[2017-04-19] MEDS ORDERED: METHADONE HCL 5 MG TABLET (FOR DETOX USE ONLY) PO ONE (10:00)
[2017-04-19] MEDS: PRENATAL VITAMINS W/ FOLIC ACID TABLET (FP) PO SCH (10:06)
[2017-04-19] MEDS: diazePAM 5 MG TABLET PO PRN ×2 (10:07→17:07)
[2017-04-19] MEDS: MAGNESIUM HYDROX 2400MG/30ML ORAL SUSPENSION 30 ML CUP PO PRN (10:07)
[2017-04-19] MEDS ORDERED: traZODone HCL 50 MG TABLET (FP) PO SCH (11:38)
[2017-04-19 13:57] VITALS: TEMP 97.5
--- NOTE | 2017-04-19 14:19 | PN ---
BHS COWS - Scale Resting Pulse: 1= [place] 81-100 Sweatin=Flushed/Facial Moisture Restless Observation: 1= Difficult to Sit Still Pupil Size: 0= Normal to Room Light Bone or Joint Aches: 1= Mild Discomfort Runny Nose/ Eye Tearin= Runny Nose/Eyes GI Upset > 30mins: 2= Nausea/Diarrhea Tremor Observation of Outstretched Hands: 2= Slight Tremor Visible Yawning Observation: 1= 1-2x During Session Anxiety or Irritability: 2=Irritable/Anxious Goose Flesh Skin: 0=Smooth Skin COWS Score: 14 BHS Progress Note (SOAP) Subjective: Anxiety,sweating,interrupted sleep,restless,body aches Objective: 04/19/17 14:17 Last Vital Signs Temp Pulse Resp BP Pulse Ox 97.5 F L 83 20 118/61 04/19/17 13:56 04/19/17 13:56 04/19/17 13:56 04/19/17 13:56 Laboratory Tests 04/17/17 04/17/17 04/17/17 13:00 15:00 15:00 WBC 5.4 RBC 5.44 Hgb 16.3 D Hct 48.9 D MCV 89.9 MCH 30.0 MCHC 33.3 RDW 13.3 Plt Count 232 D MPV 8.3 D Sodium 137 Potassium 4.4 D Chloride 99 Carbon Dioxide 33 H Anion Gap 5 L BUN 14 D Creatinine 1.1 Creat Clearance w eGFR > 60 Random Glucose 99 D Calcium 9.2 Total Bilirubin 0.6 AST 22 D ALT 42 D Alkaline Phosphatase 74 D Total Protein 7.4 Albumin 3.9 Urine Color Urine Appearance Urine pH Ur Specific [place] Urine Protein Urine Glucose (UA) Urine Ketones Urine Blood Urine Nitrite Urine Bilirubin Urine Urobilinogen Ur Leukocyte Esterase RPR Titer Hepatitis C Antibody HIV 1&2 Antibody Screen Negative HIV P24 Antigen Negative 04/17/17 04/17/17 04/17/17 15:00 15:00 15:00 WBC RBC Hgb Hct MCV MCH MCHC RDW Plt Count MPV Sodium Potassium Chloride Carbon Dioxide Anion Gap BUN Creatinine Creat Clearance w eGFR Random Glucose Calcium Total Bilirubin AST ALT Alkaline Phosphatase Total Protein Albumin Urine Color Yellow Urine Appearance Slcloudy Urine pH 5.0 D Ur Specific [place] 1.017 Urine Protein Negative Urine Glucose (UA) Negative Urine Ketones Negative Urine Blood Negative Urine Nitrite Negative Urine Bilirubin Negative Urine Urobilinogen Negative Ur Leukocyte Esterase Negative RPR Titer Nonreactive Hepatitis C Antibody <0.1 HIV 1&2 Antibody Screen HIV P24 Antigen labs noted Assessment: 04/19/17 14:18 Withdrawal sx. Plan: Continue detox
[2017-04-19] MEDS: IBUPROFEN 400 MG TABLET (FP) PO PRN (17:08)
--- NOTE | 2017-04-19 17:16 | EKG ---
Test Reason : Blood Pressure : / mmHG Vent. Rate : 052 BPM Atrial Rate : 052 BPM P-R Int : 132 ms QRS Dur : 096 ms QT Int : 432 ms P-R-T Axes : 033 007 022 degrees QTc Int : 401 ms SINUS BRADYCARDIA MINIMAL VOLTAGE CRITERIA FOR LVH, MAY BE NORMAL VARIANT BORDERLINE ECG WHEN COMPARED WITH ECG OF 10-MAY-2016 09:57, NO SIGNIFICANT CHANGE WAS FOUND Confirmed by TAYLA HASSAN MD ([id number]) on 04/19/2017 5:15:56 PM Referred By: Confirmed By:TAYLA HASSAN MD
[2017-04-19 17:24] VITALS: BP 114/52; PULSE 55
[2017-04-19] MEDS: THIAMINE HCL 100 MG TABLET (FP) PO SCH (20:35)
--- NOTE | 2017-04-19 22:30 | DS ---
[facility] Detox Discharge Summary Admission Date: 04/17/17 Discharge Date: 04/19/17 - History Present History: Cocaine Dependence, Opioid Dependence, Sedative Dependence Additional Comments: Patient is leaving AMA. He is alert and oriented to person , place and time. Risks and consequences of patient's action explained to him. Patient verbalized understanding and states," I just want to go home." - Physical Exam Results Vital Signs: Vital Signs Temperature 97.5 F L 04/19/17 17:23 Pulse Rate 55 L 04/19/17 17:23 Respiratory Rate 20 04/19/17 17:23 Blood Pressure 114/52 04/19/17 17:23 O2 Sat by Pulse Oximetry (%) Laboratory Last Values WBC 5.4 K/mm3 (4.0-10.0) 04/17/17 15:00 RBC 5.44 M/mm3 (4.00-5.60) 04/17/17 15:00 Hgb 16.3 GM/dL (11.7-16.9) D 04/17/17 15:00 Hct 48.9 % (35.4-49) D 04/17/17 15:00 MCV 89.9 fl (80-96) 04/17/17 15:00 MCH 30.0 pg (25.7-33.7) 04/17/17 15:00 MCHC 33.3 g/dl (32.0-35.9) 04/17/17 15:00 RDW 13.3 % (11.9-15.9) 04/17/17 15:00 Plt Count 232 K/MM3 (134-434) D 04/17/17 15:00 MPV 8.3 fl (7.5-11.1) D 04/17/17 15:00 Sodium 137 mmol/L (136-145) 04/17/17 15:00 Potassium 4.4 mmol/L (3.5-5.1) D 04/17/17 15:00 Chloride 99 mmol/L (98-107) 04/17/17 15:00 Carbon Dioxide 33 mmol/L (21-32) H 04/17/17 15:00 Anion Gap 5 (8-16) L 04/17/17 15:00 BUN 14 mg/dL (7-18) D 04/17/17 15:00 Creatinine 1.1 mg/dL (0.7-1.3) 04/17/17 15:00 Creat Clearance w eGFR > 60 (>60) 04/17/17 15:00 Random Glucose 99 mg/dL (74-106) D 04/17/17 15:00 Calcium 9.2 mg/dL (8.5-10.1) 04/17/17 15:00 Total Bilirubin 0.6 mg/dL (0.2-1.0) 04/17/17 15:00 AST 22 U/L (15-37) D 04/17/17 15:00 ALT 42 U/L (12-78) D 04/17/17 15:00 Alkaline Phosphatase 74 U/L (45-117) D 04/17/17 15:00 Total Protein 7.4 g/dl (6.4-8.2) 04/17/17 15:00 Albumin 3.9 g/dl (3.4-5.0) 04/17/17 15:00 Urine Color Yellow 04/17/17 15:00 Urine Appearance Slcloudy 04/17/17 15:00 Urine pH 5.0 (5.0-8.0) D 04/17/17 15:00 Ur Specific [place] 1.017 (1.001-1.035) 04/17/17 15:00 Urine Protein Negative (NEGATIVE) 04/17/17 15:00 Urine Glucose (UA) Negative (NEGATIVE) 04/17/17 15:00 Urine Ketones Negative (NEGATIVE) 04/17/17 15:00 Urine Blood Negative (NEGATIVE) 04/17/17 15:00 Urine Nitrite Negative (NEGATIVE) 04/17/17 15:00 Urine Bilirubin Negative (NEGATIVE) 04/17/17 15:00 Urine Urobilinogen Negative mg/dL (0.2-1.0) 04/17/17 15:00 Ur Leukocyte Esterase Negative (NEGATIVE) 04/17/17 15:00 RPR Titer Nonreactive (NONREACTIVE) 04/17/17 15:00 Hepatitis C Antibody <0.1 s/co ratio (0.0-0.9) 04/17/17 15:00 HIV 1&2 Antibody Screen Negative 04/17/17 13:00 HIV P24 Antigen Negative 04/17/17 13:00 lab reviewed Pertinent Admission Physical Exam Findings: withdrawal symptoms - Medication Discharge Medications: Ambulatory Orders NK [No Known Home Medication] 05/10/16 - Diagnosis (1) Cocaine dependence, uncomplicated Current Visit: Yes Status: Chronic (2) Nicotine dependence Current Visit: Yes Status: Chronic Qualifiers: Nicotine product type: cigarettes Substance use status: uncomplicated Qualified Code(s): F17.210 - Nicotine dependence, cigarettes, uncomplicated (3) Opioid dependence with withdrawal Current Visit: Yes Status: Chronic (4) Sedative, hypnotic or anxiolytic dependence, uncomplicated Current Visit: Yes Status: Chronic - AMA Did Patient Leave Against Medical Advice: Yes
[2017-04-20] MEDS ORDERED: METHADONE HCL 5 MG TABLET (FOR DETOX USE ONLY) PO ONE (10:00)
[2017-04-21] MEDS ORDERED: METHADONE HCL 10 MG TABLET (FOR DETOX USE ONLY) PO ONE (10:00)
[2017-04-22] MEDS ORDERED: METHADONE HCL 5 MG TABLET (FOR DETOX USE ONLY) PO ONE (06:00)
== END 2017-04-19 20:35 | disposition left against medical advice (07) | DRG 770 ==
LOC: YASAS 09:48 → Y6N 14:40
PROVIDERS: ADMIT Internal Medicine; ATTEND Internal Medicine
PROC: HZ2ZZZZ Detoxification Services for Substance Abuse Treatment (ICD-10-PCS; principal; 2017-04-17)
DX: F11.23 Opioid dependence with withdrawal (principal); F13.230 Sedative, hypnotic or anxiolytic dependence with withdrawal, uncomplicated; F14.20 Cocaine dependence, uncomplicated; F17.210 Nicotine dependence, cigarettes, uncomplicated
CPT/HCPCS: 36415; 80053; 81003; 85027; 86593; 86803; 87389; 93005; 93010